=== PATIENT | female | born 1975 | race African-American/Black ===

== ENCOUNTER 2021-12-31 08:00 | Day surgery (SDC) | payer OTHER ==
[2021-12-25 12:40] VITALS: BMI 28.3
[2021-12-31] MEDS ORDERED: PROPOFOL 20 ML ONE ×6 (09:03)
[2021-12-31 09:31] VITALS: TEMP 97
[2021-12-31 09:52] VITALS: BP 130/82; PULSE 66
== END 2021-12-31 09:52 | disposition home or self-care (01) ==
LOC: FASU-ENDO 08:00
PROVIDERS: ATTEND Internal Medicine Gastroenterology
PROC: 0DB68ZX Excision of Stomach, Via Natural or Artificial Opening Endoscopic, Diagnostic (ICD-10-PCS; 2021-12-31)
PROC: 0DB98ZX Excision of Duodenum, Via Natural or Artificial Opening Endoscopic, Diagnostic (ICD-10-PCS; principal; 2021-12-31 08:56)
DX: K29.50 Unspecified chronic gastritis without bleeding (principal); R10.13 Epigastric pain
CPT/HCPCS: 84703; 88305-TC; 88342-TC